=== PATIENT | male | born 1980 ===

== ENCOUNTER 2021-11-21 14:27 | Emergency (ER) | payer OTHER ==
[2021-11-21 15:40] LABS: ANION GAP 12.6 mEq/L (7-13); CHLORIDE,CL 99 mmol/L (98-107); SODIUM,NA 138 mmol/L (136-145)
[2021-11-21 15:53] LABS: ESTIMATED GFR 73 mL/min (>=60)
== END 2021-11-21 17:10 | disposition home or self-care (01) ==
LOC: DL.ED 14:27
DX: T69.9XXA Effect of reduced temperature, unspecified, initial encounter (principal); R03.0 Elevated blood-pressure reading, without diagnosis of hypertension
CPT/HCPCS: 36415; 80053; 80307; 83605; 85025; 99283